=== PATIENT | female | born 1965 | race Caucasian/White ===

== ENCOUNTER 2025-02-04 13:41 | Emergency (ER) | payer MEDICAID, OTHER ==
[~2025-02-04] VITALS: Ht 177.8 cm; Wt 62.7 kg
[~2025-02-04 13:41] MED LIST: ACYC-129 PO; ASPI-803 PO; DIPH25CA63 PO
[2025-02-04 13:52] VITALS: TEMP 97.4
--- NOTE | 2025-02-04 14:27 | RADIOLOGY REPORT ---
CLINICAL INDICATION: ELBOW PAIN TECHNIQUE: 3 views of the left elbow were performed. DI ELBOW, COMPLETE (3VW MIN) Comparison: None FINDINGS/IMPRESSION: 1. Left olecranon process fracture is distracted 16 mm. 2. No fractures are identified about the distal humerus or proximal radius. 3. Positive anterior and posterior fat pad signs consistent with joint hemarthrosis.
--- NOTE | 2025-02-04 14:50 | Physician Documentation ---
History of Present Illness ~ Chief Complaint: Arm Pain Stated Complaint: L ELBOW AND WRIST PAIN Time Seen by MD: 13:58 Primary Medical Doctor: Varun HPI 59-year-old female fell on Monday while at work. Says she slipped on paint and injured her left elbow during the fall. denies numbness or tingling reports increased pain and swelling.denies head strike. [facility] reported she has a fracture and should present to the ER for evaluation and potential surgery Tetanus within 5 years: No Medication Reconciliation Allergies: Coded Allergies: No Known Allergies (Unverified , 02/04/25) Scheduled Acyclovir* (Zovirax*), 1 TABLET PO 5XD, (Reported) Scheduled PRN Oxycodone HCl/Acetaminophen (Percocet 10-325 mg Tablet), 1 TAB PO QID PRN PRN for severe pain (7-10) Miscellaneous Medications Aspirin/Acetaminophen/Caffeine (Excedrin Extra Strength Caplet), PO, (Reported) Diphenhydramine Hcl (Antihistamine), 25 MG PO, (Reported) Review of Systems All Other Systems at this time: Reviewed and Negative ROS As stated above in the HPI, otherwise all systems are reviewed and negative. Physical Exam Vital Signs: Temperature: 97.4, Source: Temporal, Heart Rate: 75, Respiratory Rate: 16, BP: 128/84, Pulse Oximetry: 99, Weight: 62.700 Oxygen Flow Rate: 0 Physical Exam General: Alert, no apparent distress. Gastrointestinal: Soft, nontender, nondistended. Bowels sounds present. Extremities: left elbow in felxed position, notable swelling and developing echymosis left elbow , csm intact Neurologic: Oriented x4. Psychiatric: Normal mood and affect. Skin: Normal color, warm and dry. No edema, no ecchymosis. Progress Results/Orders Results/Orders Orders - GARY JACKSON DIRECT CASTING OPERATOR Ortho Orders (02/04/25 ) Completed Orders - GARY JACKSON DIRECT CASTING OPERATOR Morphine 4mg/Ml Inj. (Morphine Inj.) (02/04/25 14:55) Ketorolac Trometh 30mg/Ml Vial (Toradol (02/04/25 14:55) Medications Received in ER Medications (Trade) Dose Ordered Sig/Aren Route PRN Reason Start Time Stop Time Status Last Admin Dose Admin (morphine inj.) 4 mg ONCE ONCE IM 02/04/25 14:55 02/04/25 14:56 DC 02/04/25 15:05 4 MG (Toradol inj. 30mg/ml) 30 mg ONCE ONCE IM 02/04/25 14:55 02/04/25 14:57 DC 02/04/25 15:05 30 MG Vital Signs 02/04/25 02/04/25 13:52 15:09 Temp 97.4 Pulse 75 76 Resp 16 18 B/P (MAP) 128/84 135/82 (99) Pulse Ox 99 97 O2 Flow Rate 0 0 Medical Decision Making Findings 59-year-old female presents with a notable distracted left olecranon fracture. She is neurologically intact and not in pain out of proportion. Based on the severity of fracture, she will likely need outpatient surgery.. We will provide a posterior long-arm splint for immobilization and advised her to obtaincare via appropriate orthopedic surgeon She verbalized understanding and reports that she will call today Elbow Diff Dx:Considerations: Include: Abrasion, Arthritis, Contustion, DJD, Fracture-humerus, Fracture-radial head, Fracture-radius, Fracture-ulna, Gout, Hematoma, Laceration, Neurovascular injury, Olecranon bursitis, Open fracture, Osteomyelitis, Radial head subluxation, Rheumatoid arthritis, Septic, Sprain, Ulcer, Other Departure Disposition: 01 HOME / SELF CARE / HOMELESS Impression: Primary Impression: Olecranon fracture Condition: Improved Discharge Instructions: Extremity Fracture Additional Instructions: Are important that you see an orthopedic surgeon as soon as possible. I sent pain medications to your of pharmacy to help with the pain inflammation over the coming days. If you have any worsening concerns feel free to return to the ED Referrals: NO PRIMARY CARE PROVIDER (PCP) CATHERINE KAPADIA Jr., MD Prescriptions Oxycodone HCl/Acetaminophen (Percocet 10-325 mg Tablet) 10 Mg-325 Mg Tablet 1 TAB PO QID PRN PRN for severe pain (7-10) for 5 Days, #20 TAB 0 Refills Prov: GARY JACKSON NP 02/04/25 Education Educated: Patient Educated regarding: diagnosis Signature Scribe Signature: r Attestation: Scribed for Gary Jackson Md Urologist by Gary Larios NP . 02/04/25 14:54 GARY JACKSON NP Feb 04, 2025 14:50
[2025-02-04] MEDS ORDERED: OXYC-150 PO (14:54)
[2025-02-04] MEDS: morphine 4 MG/ML inj SYRINge IM ONE (15:05)
[2025-02-04] MEDS: ketorolac trometh 30MG/ML vial 30 MG/ML VIAL IM ONE (15:05)
[2025-02-04 15:09] VITALS: BP 135/82; PULSE 76; RESP 18; O2SAT 97
== END 2025-02-04 15:20 | disposition home or self-care (01) ==
LOC: ER 13:42
DX: S52.022B Displaced fracture of olecranon process without intraarticular extension of left ulna, initial encounter for open fracture type I or II (principal); W01.0XXA Fall on same level from slipping, tripping and stumbling without subsequent striking against object, initial encounter; Y93.89 Activity, other specified; Y92.89 Other specified places as the place of occurrence of the external cause; Y99.8 Other external cause status
CPT/HCPCS: 29105; 73080; 96372; 99284; J1885; J2270; A4565; A6446; A6449

== ENCOUNTER 2025-03-12 05:36 | Day surgery (SDC) | payer MEDICAID, OTHER ==
[2025-03-10 10:55] LABS: MEAN PLATELET VOLUME 10.0 FL (7.4-10.4); PRE OP HEMATOCRIT 39.3 % (35.0-45.0); PRE OP HEMOGLOBIN 13.0 g/dL (12.0-16.0); PRE OP PLATELET COUNT 234 X10'3 (140-440); PRE OP WHITE BLOOD COUNT 4.3 10'3 (4.8-10.8); RED CELL DISTRIBUTION WIDTH 14.4 % (11.5-14.5)
[2025-03-10 11:11] LABS: CREATININE 0.53 MG/DL (0.40-0.90); PRE OP ALT 28 U/L (30-65); PRE OP ANION GAP 6 (8-16); PRE OP AST 26 U/L (10-37); PRE OP BILIRUB, TOTAL 0.3 MG/DL (0.0-1.0); PRE OP GLUCOSE 114 MG/DL (70-104); PRE OP POTASSIUM 4.2 MMOL/L (3.4-5.1); PRE OP SODIUM 138 MMOL/L (135-145); TOTAL CARBON DIOXIDE 30.4 MMOL/L (24-32); eGFR > 90 ML/MIN
--- NOTE | 2025-03-10 11:16 | ELECTROCARDIOGRAPH REPORT ---
[facility] Test Date: 2025-03-10 Test Time: 11:14:09 Pat Name: BRANDON ESCALANTE Department: [facility]-PRE-OP Patient ID: [facility]-[id number] Room: Gender: F [employer] Process Worker: ISIDRO : 1965 Requested By: FLOWER TIMMONS Order Number: [id number] Reading MD: Dr. DIANNA Almanzar Measurements Intervals [place] Rate: 71 P: 74 NV: 142 QRS: 82 QRSD: 85 T: 70 QT: 434 QTc: 472 Interpretive Statements Sinus rhythm Anteroseptal infarct, age indeterminate Electronically Signed On 03-10-2025 15:43:[address] DIANNA Almanzar Please click the below link to view image of tracing.
[~2025-03-12] VITALS: Ht 177.8 cm; Wt 64.3 kg
[2025-03-12] VITALS (13 sets, daily range): BP systolic 101–131; BP diastolic 73–89; PULSE 62–72; RESP 7–16; TEMP 98–98.1; O2SAT 92–100
[~2025-03-12 05:36] MED LIST changes: +ACYC-1 PO; -ACYC-129 PO; +ASPI-130 PO; -ASPI-803 PO; -DIPH25CA63 PO; +IBUP600T52 PO; +LORA10TA7 PO; +OXYC-150 PO; +PSEU-259 PO
[2025-03-12] MEDS: ceFAZolin 2gm/dext,iso 50mL 50 ML IV ONE (05:47)
[2025-03-12] MEDS: ringers solution, lacted 1,000 ML IV SCH (05:59)
[2025-03-12] MEDS ORDERED: cloNIDine hcl/PF 100mcg/ml inj ONE (07:36)
[2025-03-12] MEDS ORDERED: fentaNYL/PF 50MCG/1 ML 2ML syringe ONE (07:37)
[2025-03-12] MEDS ORDERED: midazolam 1 mg/ML 2ml injection ONE (07:38)
[2025-03-12] MEDS ORDERED: propofol inj 20 ML IV ONE (07:38)
[2025-03-12] MEDS ORDERED: ROPIVAcaine 0.5% (5mg/ml) 30ml vial ONE (07:41)
[2025-03-12] MEDS ORDERED: rocuronium 10mg/ml inj IV ONE (07:42)
[2025-03-12] MEDS ORDERED: fentaNYL/PF 50MCG/1 ML 2ML syringe IV PRN (09:30)
[2025-03-12] MEDS ORDERED: labetalol 20mg/4ml (5mg/ml) syringe IV PRN (09:30)
[2025-03-12] MEDS ORDERED: hydrALAZINE 20mg/ml inj. IV PRN (09:30)
[2025-03-12] MEDS ORDERED: ringers solution, lacted 1,000 ML IV SCH (09:30)
[2025-03-12] MEDS ORDERED: HYDROmorphone/PF 0.2 MG/ML SYRINGE IV PRN (09:30)
[2025-03-12] MEDS ORDERED: dexamethasone sod phosphate 4mg/ml inj. ONE (09:57)
[2025-03-12] MEDS ORDERED: ondansetron/PF 4mg/2ml inj ONE (10:03)
[2025-03-12] MEDS: HYDROmorphone/PF 0.2 MG/ML SYRINGE IV PRN (10:49)
[2025-03-12] MEDS: acetaminophen 1,000mg/100ml IV 100 ML IV PRN (10:53)
--- NOTE | 2025-03-12 10:57 | OPERATIVE REPORT ---
DATE OF SURGERY: 03/12/2025 DICTATING PHYSICIAN: Grant Erazo MD PREOPERATIVE DIAGNOSES: Left olecranon fracture, intraarticular fracture, displaced. POSTOPERATIVE DIAGNOSES: Left olecranon fracture, intraarticular fracture, displaced. PROCEDURE PERFORMED: Open reduction and internal fixation of left olecranon fracture with plate and screw. SURGEON: Grant Erazo MD. SEWER AND DRAIN TECHNICIAN: No assistant gm of content & delivery. ANESTHESIA: General. ANESTHESIOLOGIST: Dr. Gutierrez. COMPLICATIONS: There were no complications. FINDINGS: She was found to have a displaced, unstable intraarticular olecranon fracture. IMPLANTS USED: A 5-hole olecranon spanning plate with locking screws. BLOOD LOSS: Less than 50 mL. SPECIMENS REMOVED: Just fibrous tissue located in the fracture plate space. DESCRIPTION OF PROCEDURE: This patient was taken to the operating room after I obtained informed consent and signed her left arm. She understood the indications, the risks, benefits, limitations, and potential complications of the procedure. She was given prophylactic intravenous antibiotics for prophylaxis intravenously once I signed her arm. She was taken to the operating room and given a general anesthetic and placed in a prone position so that we could have full view of the elbow. The left arm was prepped and draped in the usual sterile orthopedic fashion. A well-padded upper arm tourniquet was used and a surgical timeout was taken per protocol and the case was begun. Esmarch was used for exsanguination and tourniquet was insufflated. A longitudinal incision measuring from approximately 2-1/2 inches proximal to the olecranon, extending directly over the olecranon and into the subcutaneous portion of the proximal ulna by approximately 4 inches. 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 The ulnar nerve was now visualized and found to have significant entrapment in the cubital tunnel. This was released with meticulous dissection in a proximal to distal fashion achieving good decompression of the ulnar nerve without causing any instability. Next, the dissection was then carried down by splitting the triceps tendon over the olecranon tip and then doing subperiosteal dissection along the olecranon, exposing the fracture in this fashion and this would allow for plate fixation. The fracture was quite mobile and it had a moderate amount of fibrous ingrowth as her fracture was greater than 3 weeks old. Dissection was then carried down to the joint level. I was able to visualize the articular portions of the joint and anatomically reduced them temporarily with a Steinmann pin from the olecranon point, tip of the olecranon proximally, driving this through the fracture and into the proximal olecranon under fluoroscopic guidance. Once we realized and we were confirmed that the alignment was excellent, a 5-hole spanning bone bridge olecranon plate was used and fixation was accomplished with locking screws proximally and then a compression screw for initial fixation until we were able to confirm the alignment was acceptable under fluoroscopic visualization. Copious antibiotic irrigation was now used. Fixation of the plate distally was accomplished with locking screws so that we had approximately 6 cortices of stable fixation both proximally and distally across the fracture pattern. The elbow was taken through range of motion and found to be stable. C-arm fluoroscopy confirmed acceptable alignment of the implant and reconstruction of the ulnohumeral joint. Copious antibiotic and antiseptic solution was accomplished. Hemostasis was achieved with electrocautery. The periosteum was sewn with a running suture of 0 Vicryl, covering the plate to minimize subcutaneous adherence. Biointegrative implant called Tapestry was used 40 x 30 mm in size covering the repaired triceps tendon. Subcuticular closure was accomplished with 2-0 Vicryl and the skin was closed with skin jcarlos. Xeroform dressing was applied as well as bulky soft dressing, held in position with Mateo and an Festus wrap. A hinged elbow brace was applied allowing 20 degrees short of full extension and 100 degrees of elbow flexion. Tourniquet had been released. Good distal pulses and capillary refill had returned to the hand. There were no apparent perioperative complications. Needle and sponge counts reported to be correct. Grant Erazo MD TID: [id number] RECEIPT: [id number] MIKE/
[2025-03-12] MEDS: fentaNYL/PF 50MCG/1 ML 2ML syringe IV PRN (10:59)
[2025-03-12] MEDS: ondansetron/PF 4mg/2ml inj IV PRN (11:28)
== END 2025-03-12 12:22 | disposition short-term general hospital (02) ==
LOC: PAS 05:36
PROVIDERS: ATTEND Orthopaedic Surgery
DX: S52.032A Displaced fracture of olecranon process with intraarticular extension of left ulna, initial encounter for closed fracture (principal); G89.18 Other acute postprocedural pain; Z88.8 Allergy status to other drugs, medicaments and biological substances; X58.XXXA Exposure to other specified factors, initial encounter; Y93.89 Activity, other specified; Y92.89 Other specified places as the place of occurrence of the external cause; Y99.0 Civilian activity done for income or pay
CPT/HCPCS: 24685; 36415; 64415; 80053; 82948; 85025; 93005; A6222; C1713; C1763; J0131; J0690; J0735; J1100; J1171; J2250; J2405; J2704; J2795; J3010; J3490; J7030; J7120; L3999; Z7506; Z7508; Z7512; A4565; A4618; A6253; A6449; A7000